=== PATIENT | male | born 1975 | race African-American/Black ===

== ENCOUNTER 2017-07-13 10:28 | Emergency (ER) | payer OTHER ==
--- NOTE | ~2017-07-13 | CR63 ---
[facility] A Service of [facility] RADIOLOGY TEXT RESULTS PATIENT: MAREK MCCANN LOCATION: SED : 79 UNIT #: [id number] AGE: [address]: Tip Griffin MD SEX: M ORDER DR: [id number] [place] [id number] E MR#: [id number] Acc #: [id number] NAME: MAREK MCCANN : 1975 SEX: M STUDY DATE/TIME: 07/13/2017 UNIT: SED ROOM: STUDY DESCRIPTION: CR Chest 2 View Attending Physician: Tip Griffin M.D. Ordering Physician: Tip Griffin M.D. Primary Care Physician: Elan Ryder M.D. MEDICAL IMAGING REPORT This report is preliminary unless electronic signature is present. EXAM Chest 2 views 07/13/2017 1248 hours HISTORY 41-year-old man complaining of 2-day history of cough, shortness of air and left back pain. COMPARISON 05/21/2015. FINDINGS Upright PA and lateral views of the chest demonstrate heart size at the upper limits of normal with mildly tortuous aorta. There is mild pulmonary venous distension of mild diffuse interstitial prominence. These findings appear increased from 05/21/2015 and raise concern for an element of edema or interstitial pneumonitis. There are no effusions. IMPRESSION Heart size at the upper limits of normal with pulmonary venous distension and mild diffuse bilateral interstitial prominence. These parenchymal changes are new from 05/21/2015 and could represent mild interstitial edema or interstitial pneumonitis. There are no pleural effusions. No pneumothorax. Dictated by... Randi Modi M.D. THIS IS AN ELECTRONICALLY VERIFIED REPORT Randi Modi M.D. at 07/14/2017 9:15 AM JOANN/giles [facility] A Service of [facility] RADIOLOGY TEXT RESULTS PATIENT: MAREK MCCANN LOCATION: SED : [birth year] UNIT #: [id number] AGE: [address]: Tip Griffin MD SEX: M ORDER DR: TD: 07/13/2017 22:34 JOB #: [id number] MEDICAL IMAGING REPORT Page 1 of 1
--- NOTE | ~2017-07-13 | CT57 ---
[facility] A Service of [facility] RADIOLOGY TEXT RESULTS PATIENT: MAREK MCCANN LOCATION: SED : [birth year] UNIT #: [id number] AGE: [address]: Tip Griffin MD SEX: M ORDER DR: [id number] [place] [id number] E MR#: [id number] Acc #: [id number] NAME: MAREK MCCANN : 1975 SEX: M STUDY DATE/TIME: 07/13/2017 14:31 UNIT: SED ROOM: STUDY DESCRIPTION: CT Chest Wo Cont Attending Physician: Tip Griffin M.D. Ordering Physician: Tip Griffin M.D. Primary Care Physician: Elan Ryder M.D. MEDICAL IMAGING REPORT This report is preliminary unless electronic signature is present. EXAM CT chest without contrast. HISTORY Back pain, cough, shortness of air x 2 days, smoker. COMPARISON Two-view chest 07/13/2017. TECHNIQUE Axial images performed through the chest without contrast. Multiplanar reconstructed images reviewed at a workstation. This CT exam was performed with one or more of the following radiation dose reduction techniques: automatic exposure control, adjustment of mA and/or kV according to patient size, and iterative reconstruction. FINDINGS Examination demonstrates patchy ground-glass opacities in both lung bases, may be indicative underlying pneumonitis or possibly related to atelectasis. No dense consolidation identified. No effusions. Trachea bronchi appear normal. There is a 4-1/2-mm noncalcified nodule right lower lobe. This most likely reflects benign disease. Also a small, less than 3 mm nodule in the subpleural region right middle lobe. Heart, aorta and pulmonary vessels unremarkable on this unenhanced study. No significant adenopathy. Upper abdomen demonstrates fatty liver and cholelithiasis. Correlate clinically for evidence of acute cholecystitis. Osseous structures and thoracic inlet unremarkable. IMPRESSION 1. Patchy foci of air trapping in the posterior lung bases as well as some patchy ground-glass opacity in the lung bases versus atelectasis. This could represent acute pneumonitis, possibly infectious in etiology, STS. [facility] A Service of [facility] RADIOLOGY TEXT RESULTS PATIENT: MAREK MCCANN [place] [facility] [place] [birth year] UNIT #: [id number] AGE: [address]: Tip Griffin MD SEX: M ORDER DR: but clearly no dense consolidation identified and no effusions. 2. Multiple gallstones, mildly distended gallbladder. No definite CT evidence of acute cholecystitis. Correlate with clinical findings. 3. Several small, less than 5 mm pulmonary nodules, probably related previous granulomas disease. Current recommendations are for no specific followup in nodules less than 6 mm regardless of risk factors for patient. Dictated by... Miladis Dhaliwal M.D. THIS IS AN ELECTRONICALLY VERIFIED REPORT Miladis Dhaliwal M.D. at 07/14/2017 2:32 PM Candie TD: 07/14/2017 06:34 JOB #: [id number] MEDICAL IMAGING REPORT Page 1 of 1
== END 2017-07-13 15:52 | disposition home or self-care (01) ==
LOC: SED 10:28
DX: J84.9 Interstitial pulmonary disease, unspecified (principal); J18.1 Lobar pneumonia, unspecified organism; I10 Essential (primary) hypertension; F17.210 Nicotine dependence, cigarettes, uncomplicated
CPT/HCPCS: 71020; 71250; 94640; 96372; 99284; J1885